=== PATIENT | female | born 1995 | race Two or more races ===

== ENCOUNTER 2019-03-01 18:00 | Inpatient (IN) | payer SELFPAY ==
[~2019-03-01] VITALS: Ht 165.1 cm; Wt 78.9 kg
[2019-03-01] MEDS ORDERED: IV NS 0.9% 500 ML BAG IV ONE (18:30)
--- NOTE | 2019-03-01 18:50 | NUR ---
seen by MD - with orders for IVF - given
--- NOTE | 2019-03-01 18:51 | NUR ---
ADDENDUM: Correction of IV End times: PIV # 20 LFA Start time 1800 - 1903
[2019-03-01 18:56] LABS: BASOPHILS % (AUTO) 0.4 % (0.0-2.0); EOSINOPHILS % (AUTO) 0.2 % (0.0-6.0); HEMATOCRIT 40 % (33-45); HEMOGLOBIN 13.7 g/dL (11.5-14.8); LYMPHOCYTES # (AUTO) 1.2 /CMM (0.8-4.8); LYMPHOCYTES % (AUTO) 15.4 % (20.0-44.0); MEAN CORPUSCULAR HGB CONC 34 g/dl (31.0-36.0); MEAN CORPUSCULAR VOLUME 97 fL (82-100); MONOCYTES # (AUTO) 0.6 /CMM (0.1-1.30); MONOCYTES % (AUTO) 7.1 % (2.0-12.0); NEUTROPHILS # (AUTO) 6.1 /CMM (1.8-8.9); NEUTROPHILS % (AUTO) 76.9 % (43.0-81.0); PLATELET COUNT (AUTO) 182 /CMM (150-450); RED BLOOD CELL COUNT(AUTO) 4.13 MIL/uL (4.0-5.2)
[2019-03-01] MEDS ORDERED: IV NS 0.9% 1,000 ML BAG IV ONE (19:00)
[2019-03-01 19:03] LABS: CALCIUM, SERUM 8.7 mg/dL (8.5-10.1); CREATININE 0.8 mg/dL (0.6-1.3); POTASSIUM 3.4 mmol/L (3.5-5.1)
[2019-03-01 19:15] LABS: APPEARANCE,URINE Clear (CLEAR); BILIRUBIN,URINE Negative (NEGATIVE); BLOOD, URINE Negative Ery/uL (NEGATIVE); COLOR,URINE Yellow (YELLOW); KETONES,URINE Negative (NEGATIVE); LEUKOCYTE ESTERASE ,URINE Negative (NEGATIVE); NITRITE, URINE Negative (NEGATIVE); PROTEIN,URINE Negative (NEGATIVE); UGLUCOSE Negative (NEGATIVE); UROBILINOGEN,URINE 0.2 EU/dL (0.2)
[2019-03-01 19:16] LABS: ALBUMIN 3.9 g/dL (3.4-5.0); BILIRUBIN,DIRECT 0.1 mg/dL (0.0-0.2); BILIRUBIN,TOTAL 0.3 mg/dL (0.2-1.0); TOTAL PROTEIN, SERUM 7.6 g/dL (6.4-8.2)
[2019-03-01 19:21] LABS: SALICYLATE 1.1 mg/dL (2.8-20.0)
[2019-03-01 19:58] LABS: ABG PCO2 26.9 mmHg (35.0-45.0); ABG PH 7.471 (7.350-7.450); ABG PO2 92.6 mmHg (75.0-100.0); AaDO2 24.9 mmHg; COHb 0.7 % (0.5-1.5); MetHb 0.3 % (0.0-1.5); SITE, ABG Right Radial; VENT MODE, BG RA
[2019-03-01] MEDS ORDERED: ONDANSETRON HCL/PF 4 MG/2 ML VIAL IV ONE (21:00)
--- NOTE | 2019-03-01 21:09 | NUR ---
GIVEN REPORT TO BEV LIU.
--- NOTE | 2019-03-01 21:09 | NUR ---
REC'D REPORT FROM LOUISA LIU FOR MIMI
[2019-03-01] MEDS ORDERED: ONDANSETRON HCL/PF 4 MG/2 ML VIAL ONE (21:10)
--- NOTE | 2019-03-01 21:25 | NUR ---
Patient is resting comfortably in bed with eyes closed. Easily aroused. VSS. Family at bedside
--- NOTE | 2019-03-01 22:01 | NUR ---
CALLED RN SUP FOR BED.
--- NOTE | 2019-03-01 22:11 | NUR ---
[facility] (SISTER) CONTACT INFORMATION: OR
--- NOTE | 2019-03-01 23:19 | NUR ---
PER POISION CONTROL RECOMMENDATIONS: REPEAT TYLENOL LEVEL AND BMP STAT CALL FOR RESULTS [phone] SPOKE TO PETER
--- NOTE | 2019-03-01 23:22 | NUR ---
PT ASSIGNED TO 110
[2019-03-01 23:39] LABS: CALCIUM, SERUM 8.4 mg/dL (8.5-10.1); CREATININE 0.8 mg/dL (0.6-1.3); POTASSIUM 4.2 mmol/L (3.5-5.1)
--- NOTE | 2019-03-01 23:45 | NUR ---
GAVE REPORT TO ZULEYMA LIU FOR MIMI
[2019-03-01 23:46] LABS: ALBUMIN 3.7 g/dL (3.4-5.0); BILIRUBIN,DIRECT 0.1 mg/dL (0.0-0.2); BILIRUBIN,TOTAL 0.4 mg/dL (0.2-1.0); TOTAL PROTEIN, SERUM 7.3 g/dL (6.4-8.2)
[2019-03-02 00:20] VITALS: BP 128/78
--- NOTE | 2019-03-02 00:20 | NUR ---
23 years old, female patient admitted to Med-surg floor with the DX of drug overdose. Patient Alert and oriented X4, denies any pain or discomfort at this time. No S/S of acute distress noted, respiration even and unlabored. No SOB noted. Patient denies chest pain. Afebrile. Unit orientation provided. IV site on left forearm noted with no S/S of infection, infiltration. Patient on tele monitoring with Sinus Rhythm at this time. Kept clean and dry. Family at bed side. Call light within reach. Safety maintained, bed at the lowest locked position. Will continue to monitor patient as per plan of care.
--- NOTE | 2019-03-02 00:20 | NUR ---
PT TRANSFERRED PER ACLS PROT[employer]OL
[2019-03-02] MEDS ORDERED: KETOROLAC TROMETHAMINE INJ 30 MG/ML VIAL IV ONE (02:30)
[2019-03-02] MEDS ORDERED: ONDANSETRON HCL/PF 4 MG/2 ML VIAL IVP PRN (02:30)
[2019-03-02] MEDS ORDERED: Z GUARD REMEDY 2 OZ OINT TP PRN (02:30)
[2019-03-02] MEDS ORDERED: ZOLPIDEM TARTRATE 5 MG TABLET PO PRN (02:30)
[2019-03-02] MEDS: IV NS 0.9% 1,000 ML IV PRN ×2 (02:55→15:26)
[2019-03-02 03:25] LABS: ALANINE AMINOTRANSFERASE 15 U/L (12-78); ALBUMIN 3.7 g/dL (3.4-5.0); ALKALINE PHOSPHATASE 85 U/L (46-116); ASPARTATE AMINOTRANSFERASE 15 U/L (15-37); BILIRUBIN,DIRECT 0.1 mg/dL (0.0-0.2); BILIRUBIN,TOTAL 0.3 mg/dL (0.2-1.0); TOTAL PROTEIN, SERUM 7.2 g/dL (6.4-8.2)
--- NOTE | 2019-03-02 06:43 | NUR ---
M/S/RN notes Patient in bed, resting comfortably at this time. No S/S of acute distress noted, respiration even and unlabored. No SOB noted. No S/S of pain or discomfort noted at this time. IV site on left forearm noted with no S/S of infection, infiltration, running with fluids as ordered. Kept clean and dry. Family at bed side. Call light within reach. Safety maintained, bed at the lowest locked position. Will endorse to AM shift nurse for MIMI.
--- NOTE | 2019-03-02 07:10 | NUR ---
MS RN OPENING NOTE RECEIVED REPORT FROM PM NURSE.PATIENT IN BED.AXOX4.FAMILY AT BEDSIDE.NO SOB NO DISTRESS NOTED .ON O2 2L VIA NASAL CANULA.IV LINE IS INTACT AND PATENT.IVF ORDERED.BED IS LOW AND IN LOCKED POSITION.SRX2.BED ALARM ON.BRP.DENIED ANY SUICIDAL IDEATION AND PLANNING.WILL CONTINUE TO MONITOR.
[2019-03-02 08:00] VITALS: BP 127/77
[2019-03-02 08:07] LABS: ALBUMIN 3.2 g/dL (3.4-5.0); BILIRUBIN,TOTAL 0.3 mg/dL (0.2-1.0); CALCIUM, SERUM 8.2 mg/dL (8.5-10.1); CREATININE 1.1 mg/dL (0.6-1.3); POTASSIUM 3.9 mmol/L (3.5-5.1); TOTAL PROTEIN, SERUM 6.6 g/dL (6.4-8.2)
[2019-03-02 08:16] LABS: THYROID STIMULATING HORMONE 0.705 uIU/mL (0.358-3.74)
[2019-03-02] MEDS: PANTOPRAZOLE 40 MG TABLET.DR PO SCH (10:25)
--- NOTE | 2019-03-02 10:47 | NUR ---
MS RN NOTE SEEN BY ,UPDATED ABOUT PATIENT CONDITION WITH LABS.MADE AWARE ABOUT C/O PAIN IN UPPER ABDOMEN,GOT NEW ORDER FOR PROTONIX.GOT NEW ORDER FOR PSYCH CONSULT.FACE SHEET FAXED TO [employer].SPOKE TO KARO MADE AWARE ABOUT CONSUKLT.TOLD THAT MADE AWARE BY [employer].WILL CONTINUE TO MONITOR.
[2019-03-02] MEDS: SERTRALINE HCL 50 MG TABLET PO SCH (13:29)
[2019-03-02 16:00] VITALS: BP 113/73
--- NOTE | 2019-03-02 19:07 | NUR ---
MS RN CLOSING NOTE ENDORSED TO PM NURSE FOR MIMI.PATIENT IN STABLE CONDITION.FAMILY AT BEDSIDE.DENIED ANY SUICIDAL IDEATION.ENDORSED TO PM NURSE FOR MIMI.
--- NOTE | 2019-03-02 19:25 | NUR ---
M/S/RN notes Patient in bed, awake, watching TV at this time, No S/S of acute distress noted, respiration even and unlabored. No SOB noted. Patient alert and oriented x4, denies any pain or discomfort. IV site on left forearm noted with no S/S of infection, infiltration, running with fluids as ordered. Family at bed side. Call light within reach. Safety maintained, bed at the lowest locked position. Will continue to monitor patient as per plan of care.
[2019-03-02 20:00] VITALS: BP 119/79
[2019-03-03] VITALS: BP 119/79
[2019-03-03] MEDS: IV NS 0.9% 1,000 ML IV PRN (04:07)
--- NOTE | 2019-03-03 07:00 | NUR ---
M/S/RN notes Patient remained in bed, awake, sleeping at this time, easily arousable . No S/S of acute distress noted, respiration even and unlabored. No SOB noted. No S/S of pain noted. IV site on left forearm noted with no S/S of infection, infiltration, running with fluids as ordered. Family at bed side. Call light within reach. all needs attendant, Safety maintained, bed at the lowest locked position. Will endorse to AM shift nurse for MIMI.
[2019-03-03 07:25] LABS: CALCIUM, SERUM 8.6 mg/dL (8.5-10.1); CREATININE 0.8 mg/dL (0.6-1.3); MAGNESIUM 2.1 mg/dL (1.8-2.4); PHOSPHORUS 3.8 mg/dL (2.5-4.9)
[2019-03-03 08:00] VITALS: BP 123/82
--- NOTE | 2019-03-03 08:00 | NUR ---
MS RN NOTES PT IN BED A/OX4 . SISTER AT THE BED SIDE. NO SIGNS OF DISCOMFORT OR SOB NOTED. IV LINE PATENT AND FLUSHED WITH NS WELL. BED AT THE LOWEST POSITION AND LOCKED, CALL LIGHT WITHIN REACH. WILL CONTINUE TO MONITOR.
[2019-03-03 08:09] LABS: BASOPHILS % (AUTO) 0.5 % (0.0-2.0); HEMATOCRIT 39 % (33-45); LYMPHOCYTES # (AUTO) 3.8 /CMM (0.8-4.8); LYMPHOCYTES % (AUTO) 41.6 % (20.0-44.0); MEAN CORPUSCULAR HGB CONC 33 g/dl (31.0-36.0); MEAN CORPUSCULAR VOLUME 98 fL (82-100); MONOCYTES # (AUTO) 0.6 /CMM (0.1-1.30); MONOCYTES % (AUTO) 6.4 % (2.0-12.0); NEUTROPHILS # (AUTO) 4.6 /CMM (1.8-8.9); NEUTROPHILS % (AUTO) 49.5 % (43.0-81.0); RED BLOOD CELL COUNT(AUTO) 4.01 MIL/uL (4.0-5.2); WHITE BLOOD COUNT (AUTO) 9.2 K/uL (4.3-11.0)
[2019-03-03] MEDS: PANTOPRAZOLE 40 MG TABLET.DR PO SCH (08:17)
[2019-03-03] MEDS: SERTRALINE HCL 50 MG TABLET PO SCH (08:17)
[2019-03-03 08:28] LABS: PLATELET COUNT (AUTO) 193 /CMM (150-450)
[2019-03-03 16:00] VITALS: BP_SYST 122; BP_SYST 123; BP_DIAS 72; BP_DIAS 82
--- NOTE | 2019-03-03 18:50 | NUR ---
MS RN NOTES PT IN BED A/OX4 . SISTER STILL AT THE BED SIDE. NO SIGNS OF DISCOMFORT OR SOB NOTED. IV LINE DISLODGE AND REMOVED. BED AT THE LOWEST POSITION AND LOCKED, CALL LIGHT WITHIN REACH. WILL CONTINUE TO MONITOR. CALLED DR OCASIO FOR DC ORDER. ENDORSED TO CHILD CARE ATTEND[employer] NURSE FOR MIMI.
[2019-03-03] MEDS ORDERED: SERT50TA PO (19:36)
[2019-03-03 20:00] VITALS: BP 114/88
[2019-03-04] VITALS: BP 114/88
[2019-03-04 04:00] VITALS: BP 116/73
[2019-03-04 07:00] LABS: ALBUMIN 3.5 g/dL (3.4-5.0); BILIRUBIN,DIRECT 0.1 mg/dL (0.0-0.2); BILIRUBIN,TOTAL 0.1 mg/dL (0.2-1.0); CALCIUM, SERUM 8.6 mg/dL (8.5-10.1); CREATININE 0.8 mg/dL (0.6-1.3); MAGNESIUM 2.1 mg/dL (1.8-2.4); PHOSPHORUS 5.2 mg/dL (2.5-4.9); POTASSIUM 3.7 mmol/L (3.5-5.1)
[2019-03-04 08:00] VITALS: BP 118/68
[2019-03-04 08:09] LABS: BASOPHILS % (AUTO) 0.7 % (0.0-2.0); EOSINOPHILS % (AUTO) 2.2 % (0.0-6.0); HEMATOCRIT 35 % (33-45); HEMOGLOBIN 12.1 g/dL (11.5-14.8); LYMPHOCYTES # (AUTO) 2.4 /CMM (0.8-4.8); LYMPHOCYTES % (AUTO) 37.8 % (20.0-44.0); MEAN CORPUSCULAR HGB CONC 34 g/dl (31.0-36.0); MEAN CORPUSCULAR VOLUME 97 fL (82-100); MONOCYTES # (AUTO) 0.5 /CMM (0.1-1.30); MONOCYTES % (AUTO) 7.7 % (2.0-12.0); NEUTROPHILS # (AUTO) 3.3 /CMM (1.8-8.9); NEUTROPHILS % (AUTO) 51.6 % (43.0-81.0); PLATELET COUNT (AUTO) 181 /CMM (150-450); RED BLOOD CELL COUNT(AUTO) 3.67 MIL/uL (4.0-5.2); WHITE BLOOD COUNT (AUTO) 6.4 K/uL (4.3-11.0)
[2019-03-04] MEDS: PANTOPRAZOLE 40 MG TABLET.DR PO SCH (08:53)
[2019-03-04] MEDS: SERTRALINE HCL 50 MG TABLET PO SCH (08:53)
== END 2019-03-04 10:50 | disposition home or self-care (01) | DRG 640 ==
LOC: ER 18:03 → TELE1 03-02 00:10 → MEDSG1 03-02 03:01
PROVIDERS: ADMIT Nurse Practitioner Acute Care; ATTEND Student in an Organized Health Care Education/Training Program
DX: E87.6 Hypokalemia (principal); G93.41 Metabolic encephalopathy; R45.851 Suicidal ideations; E44.1 Mild protein-calorie malnutrition; F32.9 Major depressive disorder, single episode, unspecified; F17.210 Nicotine dependence, cigarettes, uncomplicated; Z88.5 Allergy status to narcotic agent; F12.10 Cannabis abuse, uncomplicated; F10.10 Alcohol abuse, uncomplicated; Y90.9 Presence of alcohol in blood, level not specified
CPT/HCPCS: 36415; 36600; 70450-TC; 71045-TC; 80048-TC; 80053-TC; 80061-TC; 80076-TC; 80305; 81000-TC; 82010-TC; 82803-TC; 83735-TC; 84100-TC; 84443-TC; 84703-TC; 85025-TC; 85610-TC; 85730-TC; 87081-TC; G0378; G0480; J1885; J2405

== ENCOUNTER 2019-07-27 12:57 | Emergency (ER) | payer MEDICAID, OTHER ==
[~2019-07-27] VITALS: Ht 165.1 cm; Wt 77.1 kg
[~2019-07-27 12:57] MED LIST: SERT50TA PO
--- NOTE | 2019-07-27 13:00 | NUR ---
bibsister and mother, took unknown amount of flexeril this morning, Hx SI, pt to bed 13, placed on monitor, vss, nad noted, pending md parmar
[2019-07-27 13:26] LABS: APPEARANCE,URINE CLOUDY (CLEAR); BILIRUBIN,URINE NEGATIVE (NEGATIVE); BLOOD, URINE NEGATIVE Ery/uL (NEGATIVE); COLOR,URINE YELLOW (YELLOW); KETONES,URINE NEGATIVE (NEGATIVE); LEUKOCYTE ESTERASE ,URINE NEGATIVE (NEGATIVE); NITRITE, URINE POSITIVE (NEGATIVE); PROTEIN,URINE NEGATIVE (NEGATIVE); UGLUCOSE NEGATIVE (NEGATIVE); UROBILINOGEN,URINE 0.2 EU/dL (0.2)
[2019-07-27 13:34] LABS: BASOPHILS # (AUTO) 0.1 /CMM (0.0-0.2); BASOPHILS % (AUTO) 0.9 % (0.0-2.0); EOSINOPHILS % (AUTO) 0.3 % (0.0-6.0); HEMATOCRIT 42 % (33-45); HEMOGLOBIN 14.1 g/dL (11.5-14.8); LYMPHOCYTES # (AUTO) 1.8 /CMM (0.8-4.8); LYMPHOCYTES % (AUTO) 27.9 % (20.0-44.0); MEAN CORPUSCULAR HGB CONC 34 g/dl (31.0-36.0); MEAN CORPUSCULAR VOLUME 95 fL (82-100); MONOCYTES # (AUTO) 0.4 /CMM (0.1-1.30); MONOCYTES % (AUTO) 5.6 % (2.0-12.0); NEUTROPHILS # (AUTO) 4.1 /CMM (1.8-8.9); NEUTROPHILS % (AUTO) 65.3 % (43.0-81.0); PLATELET COUNT (AUTO) 211 /CMM (150-450); RED BLOOD CELL COUNT(AUTO) 4.41 MIL/uL (4.0-5.2); WHITE BLOOD COUNT (AUTO) 6.3 K/uL (4.3-11.0)
[2019-07-27 13:35] LABS: BACTERIA,URINE Many /HPF (None Seen); RBC,URINE NONE SEEN /HPF (0-2); SPERM,URINE Present /HPF (None Seen); SQUAMOUS EPITHELIAL CELL,UR Few /HPF (None Seen)
[2019-07-27 13:59] LABS: ALBUMIN 4.1 g/dL (3.4-5.0); BILIRUBIN,DIRECT 0.1 mg/dL (0.0-0.2); BILIRUBIN,TOTAL 0.2 mg/dL (0.2-1.0); CALCIUM, SERUM 8.9 mg/dL (8.5-10.1); CREATININE 0.7 mg/dL (0.6-1.3); POTASSIUM 3.5 mmol/L (3.5-5.1); SALICYLATE 3.1 mg/dL (2.8-20.0); TOTAL PROTEIN, SERUM 7.9 g/dL (6.4-8.2)
--- NOTE | 2019-07-27 16:39 | NUR ---
PER POISON CONTROL, ASKED FOR CLINICALS, PER RECOMENDATION--CONT TO MONITOR.
[2019-07-27] MEDS ORDERED: CEPHALEXIN MONOHYDRATE 500 MG CAPSULE PO ONE ×2 (19:30→23:02)
--- NOTE | 2019-07-27 19:48 | NUR ---
GASTROENTEROLOGY PHYSICIAN JOS VAZQUEZ [id number]
--- NOTE | 2019-07-27 22:41 | NUR ---
PER JOS NGUYEN, PT WILL BE GOING [facility]OLUNT[facility] TO [facility]; PT IS NOT ON A HOLD
--- NOTE | 2019-07-27 22:59 | NUR ---
PT ACCEPTED AT [facility] ACCEPTING MD SEWELL PHONE# FOR REPORT ASK TO BE TRANSFERRED TO UNIT 2 ROOM NUMBER WILL BE PROVIDED DURING REPORT
--- NOTE | 2019-07-27 23:17 | NUR ---
REPORT GIVEN TO [facility] NURSE AT [facility]
--- NOTE | 2019-07-27 23:20 | NUR ---
CALLED CALL THE CAR FOR TRANSPORT, RESERVATION #[id number] ETA TO FOLLOW
--- NOTE | 2019-07-28 00:13 | NUR ---
RECEIVED CALL FROM KRISTI AT [facility] THE CAR. ETA: [phone] [facility]
--- NOTE | 2019-07-28 01:32 | NUR ---
TRANSPORT AT BEDSIDE REPORT GIVEN TO EMT
[2019-07-28 01:33] VITALS: BP 127/70
--- NOTE | 2019-07-28 01:40 | NUR ---
REPORT GIVEN TO carnival worker FROM [facility] LINE
== END 2019-07-28 03:10 ==
LOC: ER 12:57
DX: T39.1X2A Poisoning by 4-Aminophenol derivatives, intentional self-harm, initial encounter (principal); R45.851 Suicidal ideations; N39.0 Urinary tract infection, site not specified; F19.10 Other psychoactive substance abuse, uncomplicated; R29.818 Other symptoms and signs involving the nervous system; Z88.5 Allergy status to narcotic agent; Z79.899 Other long term (current) drug therapy; Y92.89 Other specified places as the place of occurrence of the external cause
CPT/HCPCS: 36415; 70450; 71045; 80048; 80076; 80305; 80307 ×2; 80329; 81001; 84703; 85025; 93005; 99285; G0480; 81000-TC